=== PATIENT | female | born 1980 | race Caucasian/White ===

== ENCOUNTER 2022-12-03 08:44 | Day surgery (SDC) | payer MEDICAID ==
[2022-11-23 15:23] LABS: BASOPHILS # (AUTO) 0.1 X10'3 (0-0.2); BASOPHILS % (AUTO) 0.7 % (0-1); EOSINOPHILS # (AUTO) 0.1 X10'3 (0-0.9); EOSINOPHILS % (AUTO) 0.9 % (0-6); LYMPHOCYTES # (AUTO) 2.9 X10'3 (1.1-4.8); LYMPHOCYTES % (AUTO) 31.6 % (21-51); MEAN CORPUSCULAR HEMOGLOBIN 30.9 PG (27.0-31.0); MEAN CORPUSCULAR HGB CONC 33.8 g/dL (33.0-36.5); MEAN CORPUSCULAR VOLUME 91.5 FL (78-98); MEAN PLATELET VOLUME 9.6 FL (7.4-10.4); MONOCYTES % (AUTO) 10.6 % (2-12); NEUTROPHILS # (AUTO) 5.1 X10'3 (1.8-7.7); NEUTROPHILS % (AUTO) 56.2 % (42-75); PRE OP HEMATOCRIT 45.8 % (35.0-45.0); PRE OP HEMOGLOBIN 15.5 g/dL (12.0-16.0); PRE OP PLATELET COUNT 214 X10'3 (140-440); RED BLOOD COUNT 5.01 X10'6 (4.20-5.60); RED CELL DISTRIBUTION WIDTH 14.1 % (11.5-14.5)
[2022-11-23 15:52] LABS: HCG SERUM QL NEGATIVE
[2022-11-23 16:37] LABS: ALBUMIN 3.8 G/DL (3.4-5.0); ALKALINE PHOSPHATASE 40 IU/L (46-116); CALCIUM 8.2 MG/DL (8.5-10.1); CREATININE 0.86 MG/DL (0.40-0.90); PRE OP ALT 30 U/L (30-65); PRE OP AST 17 U/L (10-37); PRE OP BILIRUB, TOTAL 0.3 MG/DL (0.0-1.0); PRE OP GLUCOSE 99 MG/DL (70-104); PRE OP POTASSIUM 3.9 MMOL/L (3.4-5.1); TOTAL CARBON DIOXIDE 27.7 MMOL/L (24-32); TOTAL PROTEIN 7.6 G/DL (6.4-8.2); eGFR 72 ML/MIN
[2022-11-23 16:50] LABS: BLOOD UREA NITROGEN 11 MG/DL (7-18); BUN/CREATININE RATIO 12.8 (6.6-38.0); CHLORIDE 101 MMOL/L (99-107); PRE OP ANION GAP 7 (8-16); PRE OP SODIUM 136 MMOL/L (135-145)
[~2022-12-03] VITALS: Ht 160 cm; Wt 117.3 kg
[2022-12-03] VITALS (15 sets, daily range): BP systolic 106–137; BP diastolic 61–86
[~2022-12-03 08:44] MED LIST: METF-1203 PO; PHEN37.58 PO; PROG200C11 PO; THYR60TA2 PO; VALA500T41 PO; acetaminophen 325mg tablet PO ONE; famotidine 20mg tablet PO ONE; ringers solution, lacted 1,000 ML IV SCH
[2022-12-03] MEDS ORDERED: BUPIVAcaine 0.5% inj/PF 30 ML ONE (10:15)
[2022-12-03] MEDS ORDERED: morphine 2 MG/ML inj. syringe IV PRN (10:55)
[2022-12-03] MEDS ORDERED: ringers solution, lacted 1,000 ML IV SCH (10:55)
[2022-12-03] MEDS ORDERED: ondansetron/PF 4mg/2ml inj IV PRN (10:55)
[2022-12-03] MEDS ORDERED: morphine 4 MG/ML inj SYRINge IV PRN (10:55)
[2022-12-03] MEDS ORDERED: proCHLORperazine 10 MG/2 ml inj IV PRN (10:55)
[2022-12-03] MEDS ORDERED: meperidine/PF 25mg/ml syringe IV PRN ×3 (10:55)
[2022-12-03] MEDS ORDERED: sevoflurane 250ml liquid IH ONE (10:56)
[2022-12-03] MEDS ORDERED: fentaNYL/PF 50MCG/1 ML 2ML syringe ONE (10:58)
[2022-12-03] MEDS ORDERED: midazolam 1 mg/ML 2ml injection ONE (10:58)
[2022-12-03] MEDS ORDERED: rocuronium 10mg/ml inj IV ONE (11:03)
[2022-12-03] MEDS ORDERED: propofol inj 20 ML IV ONE (11:03)
[2022-12-03] MEDS ORDERED: dexamethasone sod phosphate 4mg/ml inj. ONE (11:12)
[2022-12-03] MEDS ORDERED: acetaminophen 1,000mg/100ml IV 100 ML IV ONE (11:31)
[2022-12-03] MEDS ORDERED: ondansetron/PF 4mg/2ml inj ONE (11:32)
[2022-12-03] MEDS ORDERED: ketorolac trometh. 30mg/ml inj. ONE (11:32)
[2022-12-03] MEDS ORDERED: BUPIVAcaine 0.5% inj/PF 30 ml vial IJ ONE (11:40)
--- NOTE | 2022-12-03 12:24 | NUR ---
Received from OR via [facility] , accompanied by Anesthesiologist DRAKE and report given by Anesthesiolgist. PT ARRIVES ON MASK O2, RESTING AND AWAKENING TO VERBAL STIMULI, AAOX4, NO COMPLAINTS OF PAIN.
[2022-12-03] MEDS ORDERED: sugammadex 200mg/2ml injection IV ONE (12:32)
[2022-12-03] MEDS ORDERED: oxyCODONE/APAP 5-325mg tablet PO ONE ×2 (12:50)
--- NOTE | 2022-12-03 14:27 | NUR ---
PT PASSED PO TRIAL. PT STATES RELIEF OF PAIN AND REQUESTS TO GO HOME. VSS. AAOX4. MAEX4. Addendum: 12/03/22 at 1428 by Elmer Odom RN Amended: Links added.
--- NOTE | 2022-12-03 14:56 | NUR ---
PT DC WORK PROVIDED, WRITTEN AND VERBAL DC INSTRUCTIONS PROVIDED. PT VERBALIZED UNDERSTANDING. PT AMBULATORY, STEADY NARROW GAIT. PAIN IS CONTROLLED, NO N/V, VSS.
== END 2022-12-03 16:16 | disposition home or self-care (01) ==
LOC: PAS 08:44
PROVIDERS: ATTEND Obstetrics & Gynecology
DX: Z30.2 Encounter for sterilization (principal); N92.0 Excessive and frequent menstruation with regular cycle; N80.202 Endometriosis of left fallopian tube, unspecified depth; N80.352 Endometriosis of the left pelvic sidewall, unspecified depth; E03.9 Hypothyroidism, unspecified; E11.9 Type 2 diabetes mellitus without complications; E66.01 Morbid (severe) obesity due to excess calories; Z68.42 Body mass index [BMI] 45.0-49.9, adult; Z87.891 Personal history of nicotine dependence; Z88.5 Allergy status to narcotic agent; Z79.84 Long term (current) use of oral hypoglycemic drugs; Z79.899 Other long term (current) drug therapy; Z98.890 Other specified postprocedural states
CPT/HCPCS: 36415; 58563; 58670; 80053; 82948; 84703; 85025; 86885; 86900; 86901; 93005; J0131; J1100; J1885; J2175; J2250; J2405; J2704; J3010; J3490; J7030; J7120; S0020; Z7506; Z7508; Z7512; A4355; A4618; A4649; A6250; A6258; A7000